=== PATIENT | female | born 1960 | race Caucasian/White ===

== ENCOUNTER 2020-09-09 19:19 | Observation (INO) | payer OTHER ==
--- NOTE | 2020-09-09 19:56 | ED ---
General Adult HPI - General Chief complaint: Chest Pain Stated complaint: Chest Pain Time Seen by Provider: 09/09/20 19:45 Source: patient, EMS, RN notes reviewed, old records reviewed Mode of arrival: EMS Limitations: no limitations - History of Present Illness Initial comments: this is a 60-year-old female with no history of any diabetes hypertension high cholesterol or smoking. Patient also states she has no family history of any heart disease. Patient comes in today because is her fifth day of some sharp chest pain that goes across her chest pain radiates down her right arm and into her back that lasts just a few seconds and then goes away. Patient states he keeps occurring over the last 5 days and she's become concerned so she decided come to the emergency department. patient states she's also been feeling lightheaded.Patient denies any fever chills or cough per patient denies any abdominal pain. Patient denies any nausea vomiting or diarrhea. Patient denies any diaphoretic episodes. Patient denies headache patient denies numbness weakness. - Related Data Allergies Allergy/AdvReac Type Severity Reaction Status Date / Time Sulfa (Sulfonamide Allergy Rash/Hives Verified 09/09/20 20:52 Antibiotics) Review of Systems ROS Statement: Those systems with pertinent positive or pertinent negative responses have been documented in the HPI. ROS Other: All systems not noted in ROS Statement are negative. Past Medical History Past Medical History: No Reported History Additional Past Medical History / Comment(s): patient denies any medical history History of Any Multi-Drug Resistant Organisms: None Reported Additional Past Surgical History / Comment(s): history of cyst removal from left hand Past Psychological History: No Psychological Hx Reported Smoking Status: Never smoker Past Alcohol Use History: None Reported Past Drug Use History: None Reported General Exam - General Exam Comments Initial Comments: GENERAL: Patient is well-developed and well-nourished. Patient is nontoxic and well- hydrated and is in milddistress. ENT: Neck is soft and supple. No significant lymphadenopathy is noted. Oropharynx is clear. Moist mucous membranes. Neck has full range of motion without eliciting any pain. EYES: The sclera were anicteric and conjunctiva were pink and moist. Extraocular movements were intact and pupils were equal round and reactive to light. Eyelids were unremarkable. PULMONARY: Unlabored respirations. Good breath sounds bilaterally. No audible rales rhonchi or wheezing was noted. CARDIOVASCULAR: There is a regular rate and rhythm without any murmurs gallops or rubs. ABDOMEN: Soft and nontender with normal bowel sounds. SKIN: Skin is clear with no lesions or rashes and otherwise unremarkable. NEUROLOGIC: Patient is alert and oriented x3. Cranial nerves II through XII are grossly intact. Motor and sensory are also intact. Normal speech, volume and content. Symmetrical smile. MUSCULOSKELETAL: Normal extremities with adequate strength and full range of motion. No lower extremity swelling or edema. No calf tenderness. LYMPHATICS: No significant lymphadenopathy is noted PSYCHIATRIC: Normal psychiatric evaluation. Limitations: no limitations Course Vital Signs 09/09/20 09/09/20 19:46 20:45 Temperature 98.4 F Pulse Rate 87 83 Respiratory 18 18 Rate Blood Pressure 166/88 169/99 O2 Sat by Pulse 99 98 Oximetry Medical Decision Making - Medical Decision Making EKG shows normal sinus rhythm at 84 bpm WI interval 250 QRS is 80 QT interval 376 QTC is 444. EKG shows no ST segment elevation or depression Chest x-ray shows no acute abnormality. Patient received aspirin and Nitropaste emergency Department she continued to f eel somewhat lightheaded but did not have any chest pain while she was in the emergency department. I spoke with the [facility] hospitalist and they agreed to admit the patient admitted the patient I wrote admitting orders. - Lab Data Result diagrams: 09/09/20 20:06 09/09/20 20:06 Lab Results 09/09/20 09/09/20 09/09/20 Range/Units 20:06 20:06 20:06 WBC 3.6 L (3.8-10.6) k/uL RBC 4.93 (3.80-5.40) m/uL Hgb 14.0 (11.4-16.0) gm/dL Hct 42.7 (34.0-46.0) % MCV 86.6 (80.0-100.0) fL MCH 28.5 (25.0-35.0) pg MCHC 32.9 (31.0-37.0) g/dL RDW 12.7 (11.5-15.5) % Plt Count 271 (150-450) k/uL MPV 8.5 Neutrophils % 59 % Lymphocytes % 30 % Monocytes % 6 % Eosinophils % 1 % Basophils % 2 % Neutrophils # 2.1 (1.3-7.7) k/uL Lymphocytes # 1.1 (1.0-4.8) k/uL Monocytes # 0.2 (0-1.0) k/uL Eosinophils # 0.0 (0-0.7) k/uL Basophils # 0.1 (0-0.2) k/uL Sodium 138 (137-145) mmol/L Potassium 4.4 (3.5-5.1) mmol/L Chloride 103 (98-107) mmol/L Carbon Dioxide 29 (22-30) mmol/L Anion Gap 6 mmol/L BUN 15 (7-17) mg/dL Creatinine 0.62 (0.52-1.04) mg/dL Est GFR (CKD-EPI)AfAm >90 (>60 ml/min/1.73 sqM) Est GFR (CKD-EPI)NonAf >90 (>60 ml/min/1.73 sqM) Glucose 93 (74-99) mg/dL Calcium 8.5 (8.4-10.2) mg/dL Magnesium 2.2 (1.6-2.3) mg/dL Total Bilirubin 0.7 (0.2-1.3) mg/dL AST 38 H (14-36) U/L ALT 18 (4-34) U/L Alkaline Phosphatase 71 (38-126) U/L Troponin I <0.012 (0.000-0.034) ng/mL Total Protein 7.3 (6.3-8.2) g/dL Albumin 4.1 (3.5-5.0) g/dL Disposition Clinical Impression: Chest pain Disposition: ADMITTED IP TO THIS [facility] Referrals: Nonstaff,Physician [REFERRING] - 1-2 days Time of Disposition: 20:54
[2020-09-09 20:14] LABS: Basophils # (A) 0.1 k/uL (0-0.2); Basophils % (A) 2 %; Eosinophils % (A) 1 %; HCT 42.7 % (34.0-46.0); Lymphocytes # (A) 1.1 k/uL (1.0-4.8); Lymphocytes % (A) 30 %; MCH 28.5 pg (25.0-35.0); MCHC 32.9 g/dL (31.0-37.0); MCV 86.6 fL (80.0-100.0); Mean Platelet Volume 8.5; Monocytes # (A) 0.2 k/uL (0-1.0); Monocytes % (A) 6 %; Neutrophils # (A) 2.1 k/uL (1.3-7.7); Neutrophils % (A) 59 %; Platelet Count 271 k/uL (150-450); RBC 4.93 m/uL (3.80-5.40); RDW 12.7 % (11.5-15.5); WBC 3.6 k/uL (3.8-10.6)
[2020-09-09 20:26] LABS: ALT 18 U/L (4-34); AST 38 U/L (14-36); African American GFR (CKD) >90 (>60 ml/min/1.73 sqM); Albumin 4.1 g/dL (3.5-5.0); Alkaline Phosphatase 71 U/L (38-126); Anion Gap 6 mmol/L; Blood Urea Nitrogen 15 mg/dL (7-17); Calcium 8.5 mg/dL (8.4-10.2); Carbon Dioxide 29 mmol/L (22-30); Chloride 103 mmol/L (98-107); Glucose 93 mg/dL (74-99); Magnesium 2.2 mg/dL (1.6-2.3); Non-African American GFR(CKD) >90 (>60 ml/min/1.73 sqM); Potassium 4.4 mmol/L (3.5-5.1); Sodium 138 mmol/L (137-145); Total Bilirubin 0.7 mg/dL (0.2-1.3); Total Protein 7.3 g/dL (6.3-8.2)
--- NOTE | 2020-09-09 20:34 | XR ---
EXAMINATION TYPE: XR chest 2V DATE OF EXAM: 09/09/2020 COMPARISON: NONE HISTORY: Chest pain. TECHNIQUE: Frontal and lateral views of the chest are obtained. FINDINGS: There is small left basilar opacity. No pleural effusion, or pneumothorax seen. The cardi ac silhouette size is within normal limits. The osseous structures are intact. IMPRESSION: Small left basilar opacity, correlate for infiltrate.
[2020-09-09] MEDS ORDERED: NITROGLYCERIN SL TABS 0.4 MG TAB SUBLINGUAL PRN (20:52)
[2020-09-09] MEDS ORDERED: ASPIRIN 81 MG PO STA (20:52)
[2020-09-09 20:58] LABS: Prothrombin Time 10.4 sec (9.0-12.0)
[2020-09-09] MEDS: NITROGLYCERIN OINT 1 INCH/GM PACKET TOPICAL SCH ×3 (22:42→23:01)
[2020-09-10 01:32] VITALS: RESP 18
[2020-09-10 02:30] LABS: Cholesterol 152 mg/dL (<200); HDL Cholesterol 54 mg/dL (40-60); LDL Cholesterol,Calculated 88 mg/dL (0-99); Triglycerides 51 mg/dL (<150)
[2020-09-10] MEDS ORDERED: ASPIRIN 81 MG PO SCH (09:00)
[2020-09-10] MEDS ORDERED: ASPIRIN 325 MG TAB PO SCH (09:00)
--- NOTE | 2020-09-10 09:25 | P.CRDCN ---
History of Present Illness History of present illness: HISTORY OF PRESENTING ILLNESS This is a pleasant 60-year-old female with no significant past medical history. 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 We have been asked to see in consultation for chest pain. She states for the previous 1-week she has been feeling increasingly fatigued, light headed and is having intermittent chest pain. She states typically she is quite active, in fact was hiking in the [place] 2 weeks ago. However recently she feels intermittently lightheaded almost as if she will pass out. She has not ever passed out or lost consciousness thus far. She is also experiencing symptoms of chest discomfort in the mid-sternal and precordial region at times. The discomfort is described as an ache sensation with no radiation to the arm, back, neck or jaw. She denies associated shortness of breath, palpitations, nausea, vomiting or diaphoresis. The pain is no associated or exacerbated by activity, exertion or oral intake. Sometimes has been occurring at night waking her up from sleep. Currently she is chest pain free. DIAGNOSTICS EKG reveals sinus mechanism with no acute ST or T-wave changes noted. Chest xray small left basilar opactiy. Laboratory reviewed, WBC 3.6, hgb 14, plt 271, sodium 138, potassium 4.4, creatinine 0.62, magnesium 2.2, cardiac enzymes negative x3, LDL 88 and HDL 54. She takes no daily medications. REVIEW OF SYSTEMS At the time of my exam: CONSTITUTIONAL: Denies fever or chills. CARDIOVASCULAR: Denies chest pain, shortness of breath, orthopnea, PND or palpitations. RESPIRATORY: Denies cough. GASTROINTESTINAL: Denies abdominal pain, diarrhea, constipation, nausea or vomiting. MUSCULOSKELETAL: Denies myalgias. NEUROLOGIC: Denies numbness, tingling or weakness. ENDOCRINE: Denies fatigue, weight change, polydipsia or polyurina. GENITOURINARY: Denies burning, hematuria or urgency with micturation. HEMATOLOGIC: Denies history of anemia or bleeding. PHYSICAL EXAMINATION Blood pressure 133/77 heart rate 74 afebrile and maintaining oxygen saturation on room air. CONSTITUTIONAL: No apparent distress. HEENT: Head is normocephalic. Pupils are equal, round. Sclerae anicteric. Mucous membranes of the mouth are moist. No JVD. No carotid bruit. CHEST EXAMINATION: Lungs are clear to auscultation. No chest wall tenderness is noted on palpation or with deep breathing. HEART EXAMINATION: Regular rate and rhythm. S1, S2 heard. No murmurs, gallops or rub. ABDOMEN: Soft, nontender. Positive bowel sounds. EXTREMITIES: 2+ peripheral pulses, no lower extremity edema and no calf tenderness. NEUROLOGIC EXAMINATION: Patient is awake, alert and oriented x3. ASSESSMENT Chest pain, atypical for angina Dizziness Neutropenia PLAN An acute coronary event has been ruled out. Obtain 2D echocardiogram and doppler study to assess cardiac structure and function. Perform stress echocardiogram to assess for stress induced ischemia. Check for orthostatic changes. Ongoing telemetry monitoring to assess for significant arrhythmia. If all testing is unremarkable, consider outpatient event monitoring. Thank you kindly for this consultation. Nurse Practitioner note has been reviewed, I agree with a documented findings and plan of care. Patient was seen and examined. Past Medical History Past Medical History: No Reported History Additional Past Medical History / Comment(s): patient denies any medical history History of Any Multi-Drug Resistant Organisms: None Reported Additional Past Surgical History / Comment(s): history of cyst removal from left hand Past Psychological History: No Psychological Hx Reported Smoking Status: Never smoker Past Alcohol Use History: None Reported Past Drug Use History: None Reported Medications and Allergies Home Medications Medication Instructions Recorded Confirmed Type No Known Home Medications 09/09/20 09/09/20 History Allergies Allergy/AdvReac Type Severity Reaction Status Date / Time Sulfa (Sulfonamide Allergy Rash/Hives Verified 09/09/20 21:10 Antibiotics) Physical Exam Vitals: Vital Signs Temp Pulse Resp BP Pulse Ox 09/10/20 05:25 98.2 F 74 18 133/77 98 09/10/20 02:00 70 18 138/89 95 09/10/20 01:00 79 18 132/83 95 09/10/20 00:08 75 16 129/75 99 09/09/20 23:32 75 18 133/80 98 09/09/20 22:38 77 18 159/95 97 09/09/20 21:21 89 18 155/84 100 09/09/20 20:45 83 18 169/99 98 09/09/20 19:46 98.4 F 87 18 166/88 99 Intake and Output 09/09/20 09/10/20 09/10/20 22:59 06:59 14:59 Other: Weight 55.792 kg Results 09/09/20 20:06 09/09/20 20:06 Cardiac Enzymes 09/09/20 09/09/20 09/09/20 Range/Units 20:06 20:06 22:33 AST 38 H (14-36) U/L Troponin I <0.012 <0.012 (0.000-0.034) ng/mL 09/10/20 Range/Units 02:00 AST (14-36) U/L Troponin I <0.012 (0.000-0.034) ng/mL Coagulation 09/09/20 Range/Units 20:06 PT 10.4 (9.0-12.0) sec APTT 24.0 (22.0-30.0) sec Lipids 09/10/20 Range/Units 02:00 Triglycerides 51 (<150) mg/dL Cholesterol 152 (<200) mg/dL HDL Cholesterol 54 (40-60) mg/dL CBC 09/09/20 Range/Units 20:06 WBC 3.6 L (3.8-10.6) k/uL RBC 4.93 (3.80-5.40) m/uL Hgb 14.0 (11.4-16.0) gm/dL Hct 42.7 (34.0-46.0) % Plt Count 271 (150-450) k/uL Comprehensive Metabolic Panel 09/09/20 Range/Units 20:06 Sodium 138 (137-145) mmol/L Potassium 4.4 (3.5-5.1) mmol/L Chloride 103 (98-107) mmol/L Carbon Dioxide 29 (22-30) mmol/L BUN 15 (7-17) mg/dL Creatinine 0.62 (0.52-1.04) mg/dL Glucose 93 (74-99) mg/dL Calcium 8.5 (8.4-10.2) mg/dL AST 38 H (14-36) U/L ALT 18 (4-34) U/L Alkaline Phosphatase 71 (38-126) U/L Total Protein 7.3 (6.3-8.2) g/dL Albumin 4.1 (3.5-5.0) g/dL Current Medications Generic Name Dose Route Start Last Admin Trade Name Freq PRN Reason Stop Dose Admin Aspirin 325 mg 09/10/20 09:00 Aspirin 325 Mg Tab PO DAILY MARY Nitroglycerin 0.4 mg 09/09/20 20:52 Nitroglycerin Sl Tabs 0.4 Mg Tab SUBLINGUAL Q5M PRN Chest Pain Nitroglycerin 1 inch 09/10/20 00:00 09/09/20 23:01 Nitroglycerin Oint 1 Inch/Gm Packet TOPICAL 1 inch Q6HR [facility] Administration Intake and Output 09/09/20 09/10/20 09/10/20 22:59 06:59 14:59 Other: Weight 55.792 kg 09/09/20 20:06 09/09/20 20:06
[2020-09-10 09:46] LABS: T4, Free (Free Thyroxine) 1.29 ng/dL (0.78-2.19)
--- NOTE | 2020-09-10 10:00 | ECHOF ---
Referral Reason:sob, cp MEASUREMENTS -------- HEIGHT: 162.6 cm WEIGHT: 55.8 kg BP: 133/77 RVIDd: 2.7 cm (< 3.3) IVSd: 1.1 cm (0.6 - 1.1) LVIDd: 2.9 cm (3.9 - 5.3) LVPWd: 1.4 cm (0.6 - 1.1) IVSs: 1.4 cm LVIDs: 2.1 cm LVPWs: 1.7 cm LAESV Index (A-L): 18.70 ml/m Ao Diam: 2.7 cm (2.0 - 3.7) AV Cusp: 1.9 cm (1.5 - 2.6) LA Diam: 2.7 cm (2.7 - 3.8) MV EXCURSION: 18.234 mm (> 18.000) MV EF SLOPE: 74 mm/s (70 - 150) EPSS: 0.3 cm MV E Tunde: 0.80 m/s MV DecT: 205 ms MV A Tunde: 0.72 m/s MV E/A Ratio: 1.11 AR PHT: 699 ms RAP: 5.00 mmHg RVSP: 18.60 mmHg FINDINGS -------- Sinus rhythm. This was a technically adequate study. The left ventricular size is normal. There is mild concentric left ventricular hypertrophy. Overa ll left ventricular systolic function is normal with, an EF between 55 - 60 %. The diastolic fillin g pattern is normal for the age of the patient 9.87. The right ventricle is normal in size. Normal LA size by volume 22+/-6 ml/m2. The right atrial size is normal. Interatrial and interventricular septum intact. The aortic valve is trileaflet and appears structurally normal. There is mild aortic regurgitation. There is no evidence of aortic stenosis. There is trace mitral regurgitation. Mild tricuspid regurgitation present. There is no evidence of pulmonary hypertension. The right v entricular systolic pressure, as measured by Doppler, is 18.60mmHg. There is no pulmonic regurgitation present. The aortic root size is normal. Normal inferior vena cava with normal inspiratory collapse consistent with estimated right atrial pre ssure of 5 mmHg. There is no pericardial effusion. CONCLUSIONS -------- 1. The left ventricular size is normal. 2. There is mild concentric left ventricular hypertrophy. 3. Overall left ventricular systolic function is normal with, an EF between 55 - 60 %. 4. The diastolic filling pattern is normal for the age of the patient 9.87 5. There is mild aortic regurgitation. 6. There is trace mitral regurgitation. 7. Mild tricuspid regurgitation present. MORTGAGE PROFESSIONAL: Julianne Escudero RDCS
--- NOTE | 2020-09-10 10:51 | P.DS ---
Providers Date of admission: 09/09/20 20:52 Attending physician: Joseph Mejia Consults: 09/09/20 20:52 Consult Physician Urgent Consulting Provider: [facility] Consult Reason/Comments: chest pain Do you want consulting provider notified?: Yes Primary care physician: [facility] Course: Please refer to my HPI for further details. Plan - Discharge Summary New Discharge Prescriptions: New Levothyroxine Sodium [Euthyrox] 50 mcg PO DAILY #30 tablet Discharge Medication List Levothyroxine Sodium [Euthyrox] 50 mcg PO DAILY #30 tablet 09/10/20 [Rx] Follow up Appointment(s)/Referral(s): Nonstaff,Physician [REFERRING] - 1-2 days Discharge Disposition: HOME SELF-CARE
--- NOTE | 2020-09-10 10:51 | P.HPIM ---
History of Present Illness 60-year-old female came in with the complaint of chest pain on and off mild chest pain 3/10 in severity sharp in nature in the left side of the chest nonradiating and not associated with the shortness of breath, no diaphoresis last for only a few minutes.. Patient recently visited smoking on does although denied any fever chills patient has been really tired and has been sleeping excessively patient has elevated TSH with normal T4. Patient denied any nausea vomiting diarrhea. Patient denied any dysuria although urease not available urinalysis will be obtained chest x-ray showed mild atelectasis on the left side of the chest. EKG within normal limits rule out acute coronary syndromes patient is going for stress test. Chest pain is nonpruritic in nature not associated with food Review of Systems REVIEW OF SYSTEMS: CONSTITUTIONAL: As mentioned in HPI HEENT: No recent visual problems or hearing problems. Denied any sore throat. CARDIOVASCULAR: No chest pain, orthopnea, PND, no palpitations, no syncope. PULMONARY: No shortness of breath, no cough, no hemoptysis. GASTROINTESTINAL: No diarrhea, no nausea, no vomiting, no abdominal pain. NEUROLOGICAL: No headaches, no weakness, no numbness. HEMATOLOGICAL: Denies any bleeding or petechiae. GENITOURINARY: Denies any burning micturition, frequency, or urgency. MUSCULOSKELETAL/RHEUMATOLOGICAL: Denies any joint pain, swelling, or any muscle pain. ENDOCRINE: Denies any polyuria or polydipsia. The rest of the 14-point review of systems is negative. Past Medical History Past Medical History: No Reported History Additional Past Medical History / Comment(s): patient denies any medical history History of Any Multi-Drug Resistant Organisms: None Reported Additional Past Surgical History / Comment(s): history of cyst removal from left hand Past Psychological History: No Psychological Hx Reported Smoking Status: Never smoker Past Alcohol Use History: None Reported Past Drug Use History: None Reported Medications and Allergies Home Medications Medication Instructions Recorded Confirmed Type Levothyroxine Sodium [Euthyrox] 50 mcg PO DAILY #30 tablet 09/10/20 Rx Allergies Allergy/AdvReac Type Severity Reaction Status Date / Time Sulfa (Sulfonamide Allergy Rash/Hives Verified 09/09/20 21:10 Antibiotics) Physical Exam Vitals: Vital Signs Temp Pulse Resp BP Pulse Ox 09/10/20 05:25 98.2 F 74 18 133/77 98 09/10/20 02:00 70 18 138/89 95 09/10/20 01:00 79 18 132/83 95 09/10/20 00:08 75 16 129/75 99 09/09/20 23:32 75 18 133/80 98 09/09/20 22:38 77 18 159/95 97 09/09/20 21:21 89 18 155/84 100 09/09/20 20:45 83 18 169/99 98 09/09/20 19:46 98.4 F 87 18 166/88 99 Intake and Output 09/09/20 09/10/20 09/10/20 22:59 06:59 14:59 Other: Weight 55.792 kg PHYSICAL EXAMINATION: GENERAL: The patient is alert and oriented x3, not in any acute distress. Well developed, well nourished. HEENT: Pupils are round and equally reacting to light. EOMI. No scleral icterus. No conjunctival pallor. Normocephalic, atraumatic. No pharyngeal erythema. No thyromegaly. CARDIOVASCULAR: S1 and S2 present. No murmurs, rubs, or gallops. PULMONARY: Chest is clear to auscultation, no wheezing or crackles. ABDOMEN: Soft, nontender, nondistended, normoactive bowel sounds. No palpable organomegaly. MUSCULOSKELETAL: No joint swelling or deformity. EXTREMITIES: No cyanosis, clubbing, or pedal edema. NEUROLOGICAL: Gross neurological examination did not reveal any focal deficits. SKIN: No rashes. Results CBC & Chem 7: 09/09/20 20:06 09/09/20 20:06 Labs: Abnormal Lab Results - Last 24 Hours (Table) 09/09/20 09/09/20 09/10/20 Range/Units 20:06 20:06 02:00 WBC 3.6 L (3.8-10.6) k/uL AST 38 H (14-36) U/L TSH 6.500 H (0.465-4.680) mIU/L Assessment and Plan Plan: -Chest pain: Atypical ruled out acute coronary syndromes patient will undergo stress test if that's negative patient will be discharged -Lethargy and excessive sleepiness etiology is not clear will rule out UTI will obtain a UA although patient doesn't have any symptoms of UTI doesn't have any fever doesn't have any pneumonia. No evidence of sepsis at this time. Patient had an elevated TSH with normal T4, can be subclinical hyperthyroidism mo derately her ferritin because of which patient will be discharged on low-dose of levothyroxine this can be continued at discontinued depending on her repeat TSH in about a month and depending on her symptoms. Patient will follow with PCP as an outpatient for this. -Mild subsegmental atelectasis on the left side. No evidence of pneumonia patient will be discharged with incentive spirometer
[2020-09-10 11:57] VITALS: BP 145/67; PULSE 83; TEMP 97
--- NOTE | 2020-09-10 13:50 | ECHOS ---
STRESS ECHOCARDIOGRAM LUMASON: - Vial INDICATIONS: Chest pain. MEDICATIONS: BASELINE HEART RATE: 71 BASELINE BLOOD PRESSURE: 148/83 MAXIMUM HEART RATE: 143 MAXIMUM BLOOD PRESSURE: 178/84 85% MPHR: 134 100% MPHR: 158 METS: 8.5 MAXIMUM STAGE REACHED: 3 TOTAL EXERCISE TIME: 7:15 CLINICAL INFORMATION: Baseline EKG shows sinus rhythm, normal axis, normal intervals. Patient exercised on Mookie protocol for a total of 7 minutes achieving 8 METS, 90% of predicted maximal heart rate without chest pain or diagnostic ST-segment depression. Baseline echo shows normal left ventricular size, wall motion and systolic function. Postexercise,. there is normal hyperdynamic response of all segments of myocardium noted. CONCLUSION: 1. Good exercise tolerance. 2. Negative stress test by EKG criteria. 3. Negative stress echo. MMODL / IJN: [id number] /
[2020-09-10 16:25] LABS: Appearance,Urine Clear (Clear); Bilirubin,Urine Negative (Negative); Blood,Urine Negative (Negative); Color,Urine Yellow; Glucose,Urine (UA) Negative (Negative); Ketones,Urine 1+ (Negative); Leukocyte Esterase,Urine Negative (Negative); Nitrite,Urine Negative (Negative); Protein,Urine Negative (Negative); Specific Gravity,Urine 1.017 (1.001-1.035); Urobilinogen,Urine <2.0 mg/dL (<2.0)
[2020-09-10] MEDS: NITROGLYCERIN OINT 1 INCH/GM PACKET TOPICAL SCH (16:33)
== END 2020-09-10 17:35 | disposition home or self-care (01) ==
LOC: EC 19:19 → 1SOBS 20:52
PROVIDERS: ADMIT Hospitalist; ATTEND Hospitalist
DX: R07.89 Other chest pain (principal); R42 Dizziness and giddiness; R53.83 Other fatigue; R07.2 Precordial pain; D70.9 Neutropenia, unspecified; R94.6 Abnormal results of thyroid function studies; J98.11 Atelectasis; Z88.2 Allergy status to sulfonamides
CPT/HCPCS: 99285; 36415; 93005; 93306; 93351; 84439; 80061; 80053; 84443; 83735; 84484 ×2; 85025; 85610; 85730; 81003; 71046; G0378 ×2

== ENCOUNTER → 2021-03-04 | Outpatient (CLI) | payer OTHER ==
--- NOTE | 2021-03-05 12:34 | MM ---
Reason for exam: screening (asymptomatic). History: Patient is postmenopausal and had first child at age 32. Family history of breast cancer in sister at age 65. Physical Findings: A clinical breast exam by your physician is recommended on an annual basis and results should be correlated with mammographic findings. MG 3D Screening Mammo W/Cad Bilateral CC and MLO view(s) were taken. The breast tissue is extremely dense which could obscure a lesion on mammography. Stable benign calcifications. There is no discrete abnormality. No significant changes when compared with prior studies. ASSESSMENT: Benign, BI-RAD 2 RECOMMENDATION: Routine screening mammogram of both breasts in 1 year.
== END | disposition home or self-care (01) ==
LOC: RADMAMWWP 09:55
PROVIDERS: ATTEND Family Medicine
DX: Z12.31 Encounter for screening mammogram for malignant neoplasm of breast (principal); Z78.0 Asymptomatic menopausal state; Z80.3 Family history of malignant neoplasm of breast
CPT/HCPCS: 77063; 77067

== ENCOUNTER → 2022-03-29 | Outpatient (CLI) | payer OTHER ==
--- NOTE | 2022-03-30 09:14 | MM ---
Reason for Exam: Screening (asymptomatic). Last mammogram was performed 1 year(s) and 1 month(s) ago. Patient History: Menarche at age 12. First Full-Term at age 32. Late child-bearing (after 30). Postmenopausal. Patient has history of breast feeding. Sister had breast cancer, age 65. Risk Values: Suze 5 year model risk: 2.9%. NCI Lifetime model risk: 12.0%. Prior Study Comparison: 03/04/2021 Bilateral Screening Mammogram, [facility]. Tissue Density: The breast tissue is heterogeneously dense. This may lower the sensitivity of mammography. Findings: Analyzed By CAD. There is no suspicious group of microcalcifications or new suspicious mass in either breast. Benign calcifications are redemonstrated. Overall Assessment: Benign, BI-RAD 2 Management: Screening Mammogram of both breasts in 1 year. A clinical breast exam by your physician is recommended on an annual basis and results should be correlated with mammographic findings. Electronically signed and approved by: Joshua Peng M.D. Radiologis
== END | disposition home or self-care (01) ==
LOC: RADMAMWWP 07:10
PROVIDERS: ATTEND Family Medicine
DX: Z12.31 Encounter for screening mammogram for malignant neoplasm of breast (principal); Z78.0 Asymptomatic menopausal state; Z80.3 Family history of malignant neoplasm of breast
CPT/HCPCS: 77063; 77067

== ENCOUNTER 2023-12-30 13:21 | Emergency (ER) | payer BC, MEDICARE ==
--- NOTE | 2023-12-30 14:17 | ED ---
General Adult HPI - General Chief complaint: Dizziness Stated complaint: Light headed/weakness abd pain Time Seen by Provider: 12/30/23 13:40 Source: patient, RN notes reviewed Mode of arrival: ambulatory Limitations: no limitations - History of Present Illness Initial comments: 63-year-old female with no significant past medical history presents to the emergency department for evaluation near syncopal episodes today while she was in the shower. She states that she began to feel lightheaded like she was going to pass out so she sat down. When she stood up again she felt that sensation again. She denies any prodrome to this. She states that since then she has had continued lightheadedness. Patient also recounts yesterday shooting back pain t hat radiated to her abdomen. She states that this morning she was feeling her abdomen and noticed a spot that felt hard and tender. She denies any recent illness, fever, chills. She admits to normal bowel habits. Denies any urinary symptoms. Denies chest pain, shortness of breath. - Related Data Previous Rx's Medication Instructions Recorded Levothyroxine Sodium [Euthyrox] 50 mcg PO DAILY #30 tablet 09/10/20 Allergies Allergy/AdvReac Type Severity Reaction Status Date / Time Sulfa (Sulfonamide Allergy Rash/Hives Verified 12/30/23 13:27 Antibiotics) Review of Systems ROS Statement: Those systems with pertinent positive or pertinent negative responses have been documented in the HPI. ROS Other: All systems not noted in ROS Statement are negative. Past Medical History Past Medical History: No Reported History Additional Past Medical History / Comment(s): patient denies any medical history History of Any Multi-Drug Resistant Organisms: None Reported Additional Past Surgical History / Comment(s): history of cyst removal from left hand Past Anesthesia/Blood Transfusion Reactions: No Reported Reaction Past Psychological History: No Psychological Hx Reported Smoking Status: Never smoker Past Alcohol Use History: None Reported Past Drug Use History: None Reported General Exam Limitations: no limitations General appearance: alert, in no apparent distress Head exam: Present: atraumatic, normocephalic, normal inspection Eye exam: Present: normal appearance, PERRL, EOMI. Absent: scleral icterus, conjunctival injection, periorbital swelling ENT exam: Present: normal exam, mucous membranes moist Neck exam: Present: normal inspection. Absent: tenderness, meningismus, lymphadenopathy Respiratory exam: Present: normal lung sounds bilaterally. Absent: respiratory distress, wheezes, rales, rhonchi, stridor Cardiovascular Exam: Present: regular rate, normal rhythm, normal heart sounds. Absent: systolic murmur, diastolic murmur, rubs, gallop, clicks GI/Abdominal exam: Present: tenderness, normal bowel sounds, mass (right upper abdomen). Absent: distended, guarding, rebound, rigid Back exam: Present: normal inspection Neurological exam: Present: alert, oriented X3 Psychiatric exam: Present: normal affect, normal mood Skin exam: Present: warm, dry, intact, normal color. Absent: rash Course Vital Signs 12/30/23 13:24 Temperature 97.8 F Pulse Rate 87 Respiratory 18 Rate Blood Pressure 139/79 O2 Sat by Pulse 100 Oximetry Medical Decision Making - Medical Decision Making Was pt. sent in by a medical professional or institution (SADE Atkinson, SURVEYOR INSTRUMENT ASSISTANT, urgent care, hospital, or [facility]...) When possible be specific @ -No Did you speak to anyone other than the patient for history (EMS, parent, family, police, friend...)? What history was obtained from this source @ -No Did you review nursing and triage notes (agree or disagree)? Why? @ -I reviewed and agree with nursing and triage notes Were old charts reviewed (outside hosp., previous admission, EMS record, old EKG, old radiological studies, urgent care reports/EKG's, [facility] records)? Report findings @ -No old charts were reviewed Differential Diagnosis (chest pain, altered mental status, abdominal pain women, abdominal pain men, vaginal bleeding, weakness, fever, dyspnea, syncope, headache, dizziness, GI bleed, back pain, seizure, CVA, palpatations, mental health, musculoskeletal)? @ -Differential Dizziness: Benign paroxysmal positional Vertigo, Menieres disease, otitis media, acoustic neuroma, vertebrobasilar insufficiency, cerebellar stroke, encephalitis, hypovolemic, arrhythmia, coronary artery syndrome, anemia, this is not meant to be an all-inclusive list EKG interpreted by me (3pts min.). @ -EKG at 1335 shows sinus rhythm, short WA, rate 80, WA 114, QRS 85, QTQTc 181974 X-rays interpreted by me (1pt min.). @ -None done CT interpreted by me (1pt min.). 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 min.). @ -None done What testing was considered but not performed or refused? (CT, X-rays, U/S, labs)? Why? @ -None What meds were considered but not given or refused? Why? @ -None Did you discuss the management of the patient with other professionals (professionals i.e. , PA, SURVEYOR INSTRUMENT ASSISTANT, lab, RT, psych nurse, social media sr strategy manager, planning associate, teacher, foreign policy officer, block and case maker)? Give summary @ -Case discussed with Dr. Frey, urology who recommends transfer the patient for embolization Case discussed with Dr. Arias At [facility] who is accepting of the transfer Was smoking cessation discussed for >3mins.? @ -No Was critical care preformed (if so, how long)? @ -No Were there social determinants of health that impacted care today? How? (Homelessness, low income, unemployed, alcoholism, drug addiction, trans portation, low edu. Level, literacy, decrease access to med. care, halfway, rehab)? @ -No Was there de-escalation of care discussed even if they declined (Discuss DNR or withdrawal of care, Hospice)? DNR status @ -No What co-morbidities impacted this encounter? (DM, HTN, Smoking, COPD, CAD, Cancer, CVA, ARF, Chemo, Hep., AIDS, mental health diagnosis, sleep apnea, morbid obesity)? @ -None Was patient admitted / discharged? Hospital course, mention meds given and route, prescriptions, significant lab abnormalities, going to OR and other pertinent info. @ -Transfer to [facility]. Patient presented to the emergency department for evaluation of near syncope in the shower with abdominal mass. Vital signs stable while in the emergency department. Laboratory studies obtained. Hemoglobin stable at 12.5; normal coagulation studies; CMP essentially unremarkable, UA no evidence of infectious process. 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 There is also stranding hemorrhage tracking down the right retroperitoneum into the pelvis with mild to moderate hemorrhagic ascites. Case was discussed with urology, Dr. Frey who recommends embolization which we do not have capability of. Recommends transfer to a facility with this capability. Case discussed with Dr. Arias at [facility] who is accepting of the transfer. Patient stable at time of transfer. Case discussed with my attending physician, Dr Marcos Undiagnosed new problem with uncertain prognosis? @ -No Drug Therapy requiring intensive monitoring for toxicity (Heparin, Nitro, Insulin, Cardizem)? @ -No Were any procedures done? @ -No Diagnosis/symptom? @ -AML of right kidney, retroperitoneal hemorrhage Acute, or Chronic, or Acute on Chronic? @ -Acute Uncomplicated (without systemic symptoms) or Complicated (systemic symptoms)? @ -uncomplicated Side effects of treatment? @ -No Exacerbation, Progression, or Severe Exacerbation? @ -No Poses a threat to life or bodily function? How? (Chest pain, USA, CT, pneumonia, PE, COPD, DKA, ARF, appy, cholecystitis, CVA, Diverticulitis, Homicidal, Suicidal, threat to staff... and all critical care pts) @ -No - Lab Data Result diagrams: 12/30/23 14:06 12/30/23 14:06 Lab Results 12/30/23 12/30/23 12/30/23 Range/Units 14:06 14:06 14:06 WBC 9.0 (3.8-10.6) k/uL RBC 4.29 (3.80-5.40) m/uL Hgb 12.5 (11.4-16.0) gm/dL Hct 37.6 (34.0-46.0) % MCV 87.7 (80.0-100.0) fL MCH 29.0 (25.0-35.0) pg MCHC 33.1 (31.0-37.0) g/dL RDW 13.3 (11.5-15.5) % Plt Count 243 (150-450) k/uL MPV 8.7 Neutrophils % 76 % Lymphocytes % 16 % Monocytes % 5 % Eosinophils % 1 % Basophils % 0 % Neutrophils # 6.9 (1.3-7.7) k/uL Lymphocytes # 1.4 (1.0-4.8) k/uL Monocytes # 0.5 (0-1.0) k/uL Eosinophils # 0.1 (0-0.7) k/uL Basophils # 0.0 (0-0.2) k/uL PT 11.2 (10.0-12.5) sec INR 1.0 (<1.2) APTT 22.5 (22.0-30.0) sec Sodium (137-145) mmol/L Potassium (3.5-5.1) mmol/L Chloride (98-107) mmol/L Carbon Dioxide (22-30) mmol/L Anion Gap mmol/L BUN (7-17) mg/dL Creatinine (0.52-1.04) mg/dL Est GFR (CKD-EPI)AfAm (>60 ml/min/1.73 sqM) Est GFR (CKD-EPI)NonAf (>60 ml/min/1.73 sqM) Glucose (74-99) mg/dL Calcium (8.4-10.2) mg/dL Total Bilirubin (0.2-1.3) mg/dL AST (14-36) U/L ALT (4-34) U/L Alkaline Phosphatase (38-126) U/L Troponin I (0.000-0.034) ng/mL Total Protein (6.3-8.2) g/dL Albumin (3.5-5.0) g/dL Amylase (30-110) U/L Lipase (23-300) U/L Urine Color Colorless Urine Appearance Clear (Clear) Urine pH 6.0 (5.0-8.0) Ur Specific [place] 1.003 (1.001-1.035) Urine Protein Negative (Negative) Urine Glucose (UA) Negative (Negative) Urine Ketones Negative (Negative) Urine Blood Negative (Negative) Urine Nitrite Negative (Negative) Urine Bilirubin Negative (Negative) Urine Urobilinogen <2.0 (<2.0) mg/dL Ur Leukocyte Esterase Negative (Negative) 12/30/23 12/30/23 Range/Units 14:06 14:06 WBC (3.8-10.6) k/uL RBC (3.80-5.40) m/uL Hgb (11.4-16.0) gm/dL Hct (34.0-46.0) % MCV (80.0-100.0) fL MCH (25.0-35.0) pg MCHC (31.0-37.0) g/dL RDW (11.5-15.5) % Plt Count (150-450) k/uL MPV Neutrophils % % Lymphocytes % % Monocytes % % Eosinophils % % Basophils % % Neutrophils # (1.3-7.7) k/uL Lymphocytes # (1.0-4.8) k/uL Monocytes # (0-1.0) k/uL Eosinophils # (0-0.7) k/uL Basophils # (0-0.2) k/uL PT (10.0-12.5) sec INR (<1.2) APTT (22.0-30.0) sec Sodium 139 (137-145) mmol/L Potassium 3.7 (3.5-5.1) mmol/L Chloride 102 (98-107) mmol/L Carbon Dioxide 32 H (22-30) mmol/L Anion Gap 5 mmol/L BUN 19 H (7-17) mg/dL Creatinine 0.82 (0.52-1.04) mg/dL Est GFR (CKD-EPI)AfAm 87 (>60 ml/min/1.73 sqM) Est GFR (CKD-EPI)NonAf 75 (>60 ml/min/1.73 sqM) Glucose 101 H (74-99) mg/dL Calcium 9.5 (8.4-10.2) mg/dL Total Bilirubin 0.7 (0.2-1.3) mg/dL AST 29 (14-36) U/L ALT 29 (4-34) U/L Alkaline Phosphatase 83 (38-126) U/L Troponin I <0.012 (0.000-0.034) ng/mL Total Protein 7.2 (6.3-8.2) g/dL Albumin 4.3 (3.5-5.0) g/dL Amylase 67 (30-110) U/L Lipase 95 (23-300) U/L Urine Color Urine Appearance (Clear) Urine pH (5.0-8.0) Ur Specific [place] (1.001-1.035) Urine Protein (Negative) Urine Glucose (UA) (Negative) Urine Ketones (Negative) Urine Blood (Negative) Urine Nitrite (Negative) Urine Bilirubin (Negative) Urine Urobilinogen (<2.0) mg/dL Ur Leukocyte Esterase (Negative) Disposition Clinical Impression: Retroperitoneal hemorrhage, Renal mass, right Disposition: OTHER INSTITUTION NOT DEFINED Condition: Stable Is patient prescribed a controlled substance at d/c from ED?: No Referrals: Kindra Obrien DO [Primary Care Provider] - 1-2 days - Out of Hospital Transfer - Req. Specs Out of Hospital Transfer - Requested Specifics: Other Emergency Center ([facility])
[2023-12-30 14:21] VITALS: RESP 18; TEMP 97.8
[2023-12-30 14:26] LABS: Basophils % (A) 0 %; Eosinophils # (A) 0.1 k/uL (0-0.7); Eosinophils % (A) 1 %; HCT 37.6 % (34.0-46.0); HGB 12.5 gm/dL (11.4-16.0); Lymphocytes # (A) 1.4 k/uL (1.0-4.8); Lymphocytes % (A) 16 %; MCHC 33.1 g/dL (31.0-37.0); MCV 87.7 fL (80.0-100.0); Mean Platelet Volume 8.7; Monocytes # (A) 0.5 k/uL (0-1.0); Monocytes % (A) 5 %; Neutrophils # (A) 6.9 k/uL (1.3-7.7); Neutrophils % (A) 76 %; Platelet Count 243 k/uL (150-450); RBC 4.29 m/uL (3.80-5.40); RDW 13.3 % (11.5-15.5)
[2023-12-30 14:35] LABS: ALT 29 U/L (4-34); AST 29 U/L (14-36); African American GFR (CKD) 87 (>60 ml/min/1.73 sqM); Albumin 4.3 g/dL (3.5-5.0); Alkaline Phosphatase 83 U/L (38-126); Amylase 67 U/L (30-110); Anion Gap 5 mmol/L; Blood Urea Nitrogen 19 mg/dL (7-17); Calcium 9.5 mg/dL (8.4-10.2); Carbon Dioxide 32 mmol/L (22-30); Chloride 102 mmol/L (98-107); Glucose 101 mg/dL (74-99); Lipase 95 U/L (23-300); Non-African American GFR(CKD) 75 (>60 ml/min/1.73 sqM); Potassium 3.7 mmol/L (3.5-5.1); Sodium 139 mmol/L (137-145); Total Bilirubin 0.7 mg/dL (0.2-1.3); Total Protein 7.2 g/dL (6.3-8.2)
[2023-12-30 14:37] LABS: Partial Thromboplastin Time 22.5 sec (22.0-30.0); Prothrombin Time 11.2 sec (10.0-12.5)
[2023-12-30 15:04] LABS: Appearance,Urine Clear (Clear); Bilirubin,Urine Negative (Negative); Blood,Urine Negative (Negative); Color,Urine Colorless; Glucose,Urine (UA) Negative (Negative); Ketones,Urine Negative (Negative); Leukocyte Esterase,Urine Negative (Negative); Nitrite,Urine Negative (Negative); Protein,Urine Negative (Negative); Specific Gravity,Urine 1.003 (1.001-1.035); Urobilinogen,Urine <2.0 mg/dL (<2.0)
--- NOTE | 2023-12-30 15:30 | CT ---
EXAMINATION TYPE: CT abdomen pelvis w con DATE OF EXAM: 12/30/2023 COMPARISON: NONE HISTORY: 63-year-old female Sharp abdominal and back pain last night. None today. TECHNIQUE: Contiguous axial scanning of the abdomen and pelvis following administration of 100 ml Iso joe 300 IV contrast. Delayed images through the kidneys and coronal/sagittal reconstructions perform ed. CT DLP: 544 mGycm Automated exposure control for dose reduction was used. FINDINGS: Heart is normal size without pericardial effusion. Lung bases clear without pleural effusio n. A few small nonspecific hypodensities in the right hepatic dome measuring up to 1.3 cm. Possible smal l cysts or hemangiomas. Portal venous system is patent. No biliary ductal dilatation. Adrenal glands, left kidney, spleen, and pancreas within normal limits. There is an exophytic mass of the anterior lower pole right kidney measuring 5.[address] [place] soft tissue and large areas of fat density. There is extensive surrounding retroperitoneal hemo rrhage extending medially to the IVC and laterally throughout the perirenal space measuring up to 10. 3 cm wide and 10.8 cm craniocaudal. Mild extraperitoneal hemorrhage tracks down the right pelvic side wall and there is moderate free fluid in the cul-de-sac. No dilated small bowel or free air. Normal appendix. Mild stool burden. No pericolonic inflammatory change. Bladder is nondistended. Uterus anteverted. Both ovaries are visualized. No pelvic lymphadenopathy. Bones: Advanced degenerative disc disease L4-L5 and L5-S1 with some facet arthropathy mid to lower kelin mbar spine. IMPRESSION: 1. 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 SURROUNDING ACUTE HEMORRHAGE MEASURES UP TO 10.8 CM. 2. SOME STRANDY HEMORRHAGE TRACKS DOWN THE RIGHT RETROPERITONEUM INTO THE PELVIS WHERE THERE IS MILD TO MODERATE HEMORRHAGIC ASCITES COLLECTING. CRITICAL FINDINGS CALLED TO DR. Marcos IN THE ER at 3:27 PM.
[2023-12-30 16:54] VITALS: BP 149/93; PULSE 95
== END 2023-12-30 16:47 | disposition other institution (70) ==
LOC: EC 13:21
DX: K68.3 Retroperitoneal hematoma (principal); N28.89 Other specified disorders of kidney and ureter; Z88.2 Allergy status to sulfonamides
CPT/HCPCS: 36415; 93005; 80053; 82150; 83690; 84484; 85025; 85610; 85730; 81003; 74177; 99285; Q9967

== ENCOUNTER → 2024-02-12 | Outpatient (CLI) | payer BC ==
--- NOTE | 2024-02-13 14:15 | MM ---
Reason for Exam: Screening (asymptomatic). Last mammogram was performed 1 year(s) and 10 month(s) ago. Patient History: Menarche at age 12. First Full-Term at age 32. Late child-bearing (after 30). Postmenopausal. Patient has history of breast feeding. Sister had breast cancer, age 65. Risk Values: Suze 5 year model risk: 3.1%. NCI Lifetime model risk: 11.3%. Prior Study Comparison: 03/04/2021 Bilateral Screening Mammogram, [facility]. 03/29/2022 Bilateral MG 3D screening mammo w/cad, [facility]. Tissue Density: The breasts are heterogeneously dense, which may obscure small masses. Findings: Analyzed By CAD. There is no suspicious group of microcalcifications or new suspicious mass in either breast. Overall Assessment: Benign, BI-RAD 2 Management: Screening Mammogram of both breasts in 1 year. . Patient should continue monthly self-breast exams. A clinical breast exam by your physician is recommended on an annual basis. This exam should not preclude additional follow-up of suspicious palpable abnormalities. Note on Suze scores and lifetime risk: 1. A Suze score greater than 3% is considered moderate risk. If this is the case, consider specialist referral to assess eligibility for a risk reducing agent. 2. If overall lifetime risk for the development of breast cancer is 20% or higher, the patient may qualify for future screening with alternating mammogram and breast MRI. Electronically signed and approved by: Joshua Peng M.D. Radiologis
== END | disposition home or self-care (01) ==
LOC: RADMAMWWP 07:06
PROVIDERS: ATTEND Family Medicine
DX: Z12.31 Encounter for screening mammogram for malignant neoplasm of breast (principal); Z78.0 Asymptomatic menopausal state; Z80.3 Family history of malignant neoplasm of breast
CPT/HCPCS: 77063; 77067